=== PATIENT | female | born 1995 | race Caucasian/White ===

== ENCOUNTER 2016-12-27 15:14 | Emergency (ER) | payer OTHER ==
[~2016-12-27] VITALS: Ht 154.9 cm; Wt 56.0 kg
[2016-12-27 15:56] VITALS: BP 123/80
== END 2016-12-27 15:56 | disposition home or self-care (01) ==
LOC: ED 15:14
DX: O26.892 Other specified pregnancy related conditions, second trimester (principal); L42 Pityriasis rosea; J00 Acute nasopharyngitis [common cold]; Z3A.00 Weeks of gestation of pregnancy not specified

== ENCOUNTER 2019-03-08 18:53 | Emergency (ER) | payer OTHER ==
[~2019-03-08] VITALS: Ht 154.9 cm; Wt 64.0 kg
[2019-03-08 19:33] VITALS: Ht 154.9 cm; Wt 64.0 kg
[2019-03-08 22:43] VITALS: BP 109/51
== END 2019-03-08 22:43 | disposition home or self-care (01) ==
LOC: ED 18:53
DX: O99.512 Diseases of the respiratory system complicating pregnancy, second trimester (principal); O26.892 Other specified pregnancy related conditions, second trimester; H66.91 Otitis media, unspecified, right ear; Z3A.18 18 weeks gestation of pregnancy
CPT/HCPCS: 87804; J2405